=== PATIENT | male | born 1930 | race Caucasian/White ===

== ENCOUNTER 2018-09-02 05:13 | Inpatient (IN) | payer MEDICARE, OTHER ==
[2018-08-28 10:23] LABS: BASOPHILS # (AUTO) 0.1 X10'3 (0-0.2); BASOPHILS % (AUTO) 0.7 % (0-1); EOSINOPHILS # (AUTO) 0.1 X10'3 (0-0.9); EOSINOPHILS % (AUTO) 1.3 % (0-6); HEMATOCRIT 42.1 % (42.0-52.0); LYMPHOCYTES # (AUTO) 1.5 X10'3 (1.1-4.8); MEAN CORPUSCULAR HEMOGLOBIN 31.5 PG (27.0-31.0); MEAN CORPUSCULAR HGB CONC 33.1 g/dL (33.0-36.5); MEAN PLATELET VOLUME 8.5 FL (7.4-10.4); MONOCYTES # (AUTO) 0.5 X10'3 (0-0.9); MONOCYTES % (AUTO) 7.5 % (2-12); NEUTROPHILS # (AUTO) 4.9 X10'3 (1.8-7.7); NEUTROPHILS % (AUTO) 69.5 % (42-75); PLATELET COUNT 191 X10'3 (140-440); RED BLOOD COUNT 4.44 X10'6 (4.70-6.10); RED CELL DISTRIBUTION WIDTH 14.2 % (11.5-14.5); WHITE BLOOD COUNT 7.1 X10'3 (4.5-11.0)
[2018-08-28 10:31] LABS: ALBUMIN 3.7 G/DL (3.4-5.0); ANION GAP 9 (8-16); BLOOD UREA NITROGEN 21 MG/DL (7-18); BUN/CREATININE RATIO 19.6 (5.4-32.0); CALCIUM 8.8 MG/DL (8.5-10.1); CHLORIDE 105 MMOL/L (99-107); CREATININE 1.07 MG/DL (0.60-1.10); GLUCOSE 114 MG/DL (70-104); POTASSIUM 4.3 MMOL/L (3.5-5.1); SODIUM 142 MMOL/L (135-145); TOTAL CARBON DIOXIDE 28.3 MMOL/L (24-32); eGFR 65 ML/MIN
[2018-08-28 10:37] LABS: PARTIAL THROMBOPLASTIN TIME 30 SECONDS (22-32)
[2018-09-02] VITALS (24 sets, daily range): BP systolic 81–128; BP diastolic 42–62
[~2018-09-02] VITALS: Ht 188 cm; Wt 72.5 kg
[2018-09-02] MEDS ORDERED: LORazepam 0.5 MG tablet PO PRN (05:45)
[2018-09-02] MEDS ORDERED: diphenhydrAMINE 25mg capsule PO PRN ×2 (05:45→10:55)
[2018-09-02] MEDS ORDERED: ASPI81TA44 PO (05:49)
[2018-09-02] MEDS ORDERED: LISI10TA4 PO (05:49)
[2018-09-02] MEDS ORDERED: CARV6.253 PO (05:49)
[2018-09-02] MEDS ORDERED: POTA-82 PO (05:49)
[2018-09-02] MEDS ORDERED: ATOR40TA PO (05:49)
[2018-09-02] MEDS ORDERED: NIFE60TA80 PO (05:49)
[2018-09-02] MEDS ORDERED: FURO-150 PO (05:49)
[2018-09-02] MEDS: normal saline 1,000 ML IV SCH ×2 (05:54→15:40)
[2018-09-02] MEDS ORDERED: iohexol 350MG/ML 100ml bottle IV ONE (05:59)
[2018-09-02] MEDS ORDERED: fentaNYL/PF 50MCG/1 ML 2ML syringe ONE (05:59)
[2018-09-02] MEDS ORDERED: midazolam 2 mg/2 ml injection ONE (05:59)
[2018-09-02] MEDS ORDERED: LIDOcaine 1% (10mg/ml)w/preservative injection 20ml MDV ONE (05:59)
[2018-09-02] MEDS ORDERED: HYDROcodone/acetaminophen 10/325mg tab PO PRN (07:40)
[2018-09-02] MEDS ORDERED: proCHLORperazine 10 MG/2 ml inj IV PRN (07:40)
[2018-09-02] MEDS ORDERED: ondansetron/PF 4mg/2ml inj IV PRN ×2 (07:40→10:55)
[2018-09-02] MEDS ORDERED: HYDROcodone/acetaminophen 5mg/325mg tablet PO PRN ×2 (07:40→10:55)
[2018-09-02] MEDS ORDERED: OXAZEpam 15mg capsule PO PRN (07:40)
[2018-09-02] MEDS ORDERED: insulin glargine (Lantus) pen - multi-dose SQ PRN (09:25)
[2018-09-02] MEDS ORDERED: MESSAGE TO NURSING PO ONE ×5 (09:25→10:00)
[2018-09-02] MEDS ORDERED: gabapentin 400mg capsule PO ONE (09:25)
[2018-09-02] MEDS ORDERED: dextrose 50%-water 50ml dispensing syringe IV PRN (09:25)
[2018-09-02 12:26] LABS: ABG BASE EXCESS 1.4 mmol/L (-2.0-3.0); ABG HCO3 25.2 mmol/L (22.0-26.0); ABG OXYGEN SATURATION 96.9 % (95-98); ABG PCO2 (T) 36.6 mmHg (35.0-48.0); ABG PH (T) 7.455 (7.350-7.450); ABG PO2 (T) 93.9 mmHg (83-108); ALLEN'S TEST Positive; FCOHb 0.7 % (0.5-1.5); FO2Hb 96.2 % (94-100); TOTAL HEMOGLOBIN 12.4 G/dl (14.0-18.0)
[2018-09-02] MEDS ORDERED: magnesium sulf 1 GM/2 ML ONE (14:00)
[2018-09-02] MEDS ORDERED: albumin (human) 25% 100 ML IV solution IV ONE (14:00)
[2018-09-02] MEDS ORDERED: heparin 1,000 units/ml 10ml inj ONE (14:00)
[2018-09-02] MEDS ORDERED: phenylephrine 10mg/ml inj. ONE (14:00)
[2018-09-02] MEDS ORDERED: potassium Cl 2 mEq/ml inj IV ONE (14:00)
[2018-09-02] MEDS ORDERED: heparin 10,000 units/1 ML INJ ONE (14:00)
[2018-09-02] MEDS ORDERED: methylPREDNISolone sod. succ. 500mg inj ONE (14:00)
[2018-09-02] MEDS ORDERED: aminocaproic acid 250 MG/1 ML inj. ONE (14:00)
[2018-09-02] MEDS ORDERED: calcium chloride 100 MG/1 ML inj IV ONE (14:00)
[2018-09-02] MEDS ORDERED: sodium bicarbonate (8.4%) 1 mEq/ml syringe ONE (14:00)
[2018-09-02] MEDS ORDERED: LIDOcaine 2% (20 mg/ml) 5ml cardiac syringe ONE (14:00)
--- NOTE | 2018-09-02 14:00 | NUR ---
Patient arrived to room 316 and ambulated from wheelchair to hospital bed. Alert and oriented times four. Hard of hearing. Oriented patient to room and call light.
[2018-09-02 15:43] LABS: HEMATOCRIT 35.8 % (42.0-52.0); HEMOGLOBIN 12.2 g/dl (14.0-17.9); MEAN CORPUSCULAR HGB CONC 34.1 g/dL (33.0-36.5); PLATELET COUNT 161 X10'3 (140-440); RED BLOOD COUNT 3.81 X10'6 (4.70-6.10); RED CELL DISTRIBUTION WIDTH 14.2 % (11.5-14.5); WHITE BLOOD COUNT 7.3 X10'3 (4.5-11.0)
[2018-09-02 15:51] LABS: ALBUMIN 3.1 G/DL (3.4-5.0); ANION GAP 5 (8-16); BLOOD UREA NITROGEN 23 MG/DL (7-18); BUN/CREATININE RATIO 21.5 (5.4-32.0); CALCIUM 8.4 MG/DL (8.5-10.1); CHLORIDE 108 MMOL/L (99-107); CREATININE 1.07 MG/DL (0.60-1.10); GLUCOSE 100 MG/DL (70-104); SODIUM 145 MMOL/L (135-145); eGFR 65 ML/MIN
[2018-09-02 16:02] LABS: PARTIAL THROMBOPLASTIN TIME 30 SECONDS (22-32)
[2018-09-02 16:06] LABS: CLARITY,URINE CLEAR (Clear); COLOR,URINE YELLOW (Yellow); GLUCOSE, URINE NEGATIVE (Neg); KETONES,URINE NEGATIVE (Neg); LEUKOCYTE ESTERASE ,URINE NEGATIVE (Neg); NITRITES, URINE NEGATIVE (Neg); OCCULT BLOOD,URINE NEGATIVE (Neg); PROTEIN,URINE NEGATIVE (Neg)
[2018-09-02 16:08] LABS: UA COLLECTION TYPE VOIDED
[2018-09-02 16:52] LABS: MAGNESIUM 2.3 MG/DL (1.5-2.4)
[2018-09-02] MEDS ORDERED: heparin 25,000 UNIT/250ml bag 250 ML IV SCH (16:58)
[2018-09-02] MEDS ORDERED: heparin 10,000 units/1 ML INJ IV PRN (17:00)
[2018-09-02] MEDS ORDERED: heparin 10,000 units/1 ML INJ IV ONE (17:00)
--- NOTE | 2018-09-02 17:34 | NUR ---
Called Dr Perry to verify order for Heparin drip. He stated that he reviewed the carotid and venous ultrasounds and that the patient has a clot in his common femoral vein of the right lower extremity. Initiate heparin drip now, and d/c heparin drip four hours prior to surgery. Surgery is set for 0700 tomorrow morning.
--- NOTE | 2018-09-02 18:00 | NUR ---
Problems reprioritized. Patient report given, questions answered & plan of care reviewed with Sandi.
--- NOTE | 2018-09-02 18:15 | NUR ---
Patient in room MED 316. I have received report from DAIANA Amin (orienteer) and DAIANA Holliday and had the opportunity to ask questions and assume patient care.
--- NOTE | 2018-09-02 18:33 | NUR ---
Patient in room MED 316. I have received report from Eloisa AHMADI, Miya AHMADI and had the opportunity to ask questions and assume patient care.
--- NOTE | 2018-09-02 18:43 | NUR ---
Orientee documentation: I have reviewed and agree with all interventions, assessments performed and documented by Eloisa AHMADI. Orientee Medication Administration: For this medication-pass time frame, all medication were reviewed, dispensed, administered and documented per hospital policy by Eloisa AHMADI.
[2018-09-02] MEDS: mupirocin 2% ointment 22GM NS SCH (21:23)
[2018-09-02] MEDS: metoprolol tartrate 12.5mg (1/2 tablet) PO SCH (21:24)
[2018-09-02] MEDS: carvedilol 6.25mg tablet PO SCH (21:25)
[2018-09-03] VITALS (35 sets, daily range): BP systolic 97–137; BP diastolic 49–76
[2018-09-03] MEDS: normal saline 1,000 ML IV SCH (01:45)
[2018-09-03 03:17] LABS: BASOPHILS # (AUTO) 0.1 X10'3 (0-0.2); BASOPHILS % (AUTO) 0.7 % (0-1); EOSINOPHILS # (AUTO) 0.1 X10'3 (0-0.9); EOSINOPHILS % (AUTO) 1.9 % (0-6); HEMATOCRIT 34.7 % (42.0-52.0); HEMOGLOBIN 11.8 g/dl (14.0-17.9); LYMPHOCYTES % (AUTO) 25.8 % (21-51); MEAN CORPUSCULAR HGB CONC 34.1 g/dL (33.0-36.5); MEAN CORPUSCULAR VOLUME 93.7 FL (78-98); MEAN PLATELET VOLUME 8.7 FL (7.4-10.4); MONOCYTES # (AUTO) 0.6 X10'3 (0-0.9); MONOCYTES % (AUTO) 8.3 % (2-12); NEUTROPHILS # (AUTO) 4.9 X10'3 (1.8-7.7); NEUTROPHILS % (AUTO) 63.3 % (42-75); PLATELET COUNT 146 X10'3 (140-440); RED CELL DISTRIBUTION WIDTH 14.1 % (11.5-14.5); WHITE BLOOD COUNT 7.8 X10'3 (4.5-11.0)
[2018-09-03 03:24] LABS: ALBUMIN 2.9 G/DL (3.4-5.0); ANION GAP 7 (8-16); BLOOD UREA NITROGEN 20 MG/DL (7-18); CALCIUM 8.4 MG/DL (8.5-10.1); CHLORIDE 106 MMOL/L (99-107); CREATININE 1.05 MG/DL (0.60-1.10); GLUCOSE 115 MG/DL (70-104); POTASSIUM 3.8 MMOL/L (3.5-5.1); SODIUM 140 MMOL/L (135-145); TOTAL CARBON DIOXIDE 26.9 MMOL/L (24-32); eGFR 67 ML/MIN
[2018-09-03] MEDS ORDERED: ROPIVAcaine 0.5% (5mg/ml) 30ml vial ONE ×2 (04:34→10:24)
--- NOTE | 2018-09-03 04:41 | NUR ---
Orienteer documentation: I have reviewed and agree with all interventions, assessments performed and documented by Makenzie Huber RN. Orienteer Medication Administration: For this medication-pass time frame, all medication were reviewed, dispensed, administered and documented per hospital policy by Makenzie Huber RN .
[2018-09-03] MEDS ORDERED: insulin glargine (Lantus) pen - multi-dose SQ PRN (05:30)
[2018-09-03] MEDS ORDERED: vancomycin/NS 1 GM ADD-VANTAGE 250 ML IV ONE (05:30)
[2018-09-03] MEDS ORDERED: dextrose 50%-water 50ml dispensing syringe IV PRN ×2 (05:30→11:10)
[2018-09-03] MEDS ORDERED: cefazolin/dext.iso 2gm/50ml 50 ML IV ONE (05:30)
[2018-09-03] MEDS ORDERED: LORazepam 2 mg/ml vial IV ONE (05:30)
[2018-09-03] MEDS ORDERED: NUT.TX.IMPAIRED DIGEST FXN (Ensure Clear) 237 ML PO ONE (05:30)
[2018-09-03] MEDS ORDERED: gabapentin 400mg capsule PO ONE (05:30)
[2018-09-03] MEDS ORDERED: famotidine 20mg tablet PO ONE (05:30)
--- NOTE | 2018-09-03 06:00 | NUR ---
Patient in room MED 316. I have received report from Sandi and had the opportunity to ask questions and assume patient care.
--- NOTE | 2018-09-03 06:15 | NUR ---
Problems reprioritized. Patient report given, questions answered & plan of care reviewed with DAIANA Camar[place] and DAIANA Amin (orienteer).
--- NOTE | 2018-09-03 06:20 | NUR ---
V/S stable, pt was not in acute distress. visited pt by bedside, pt advised that he had no pain, and he is eager to get through the "open heart surgery". Pt picked up by OR staff for CABG at 0620. All personal belongings were taken.
[2018-09-03] MEDS ORDERED: propofol (Diprivan) 10mg/ml 100ml bottle IV ONE (06:27)
[2018-09-03] MEDS ORDERED: protamine sulf. 10mg/ml inj. IV ONE (06:27)
[2018-09-03] MEDS ORDERED: sevoflurane 250ml liquid IH ONE ×2 (06:27→15:10)
[2018-09-03] MEDS ORDERED: aminocaproic acid 250 MG/1 ML inj. ONE (06:27)
[2018-09-03] MEDS ORDERED: acetaminophen 1000 MG/100ml vial IV ONE (06:27)
[2018-09-03] MEDS ORDERED: DOBUTamine/D5W 500mg/250ml premix IV ONE (06:27)
[2018-09-03] MEDS ORDERED: DOPamine/D5W 400mg/250ml bag IV ONE ×2 (06:27→15:10)
[2018-09-03] MEDS ORDERED: midazolam 2 mg/2 ml injection ONE ×2 (06:34→06:39)
[2018-09-03] MEDS ORDERED: SUFENTANIL CITRATE 50 MCG/ML 2ml ampule IV ONE (06:34)
[2018-09-03] MEDS ORDERED: rocuronium 10mg/ml inj IV ONE ×3 (06:39→16:09)
[2018-09-03] MEDS ORDERED: etomidate 2mg/ml inj. ONE (06:40)
[2018-09-03 07:36] LABS: ABG BASE EXCESS VENOUS -1.2 mmol/L; ABG HCO3 VENOUS 23.5 mmol/L; ABG PCO2 VENOUS 39.7 mmHg; ABG PO2 VENOUS 38.1 mmHg; CL (ABG) 103 mmol/L (99-107); FHHb VENOUS 26.6 %; FMetHb VENOUS 0.2 %; FO2Hb VENOUS 72.2 %; GLUCOSE (ABG) 130 mg/dl (70-105); IONIZED CA (ABG) 1.11 mmol/L (1.03-1.32); K (ABG) 3.5 mmol/L (3.3-5.1); NA (ABG) 133 mmol/L (135-145); TOTAL HEMOGLOBIN 10.5 G/dl (14.0-18.0)
[2018-09-03] MEDS ORDERED: phenylephrine 10mg/ml inj. ONE (07:39)
[2018-09-03] MEDS ORDERED: furosemide 20MG tablet PO SCH (08:00)
[2018-09-03] MEDS ORDERED: atorvastatin 20mg tablet PO SCH (08:00)
[2018-09-03] MEDS ORDERED: NIFEdipine XL 30mg tablet PO SCH (08:00)
[2018-09-03] MEDS ORDERED: lisinopril 10 MG tablet PO SCH (08:00)
[2018-09-03] MEDS ORDERED: potassium Cl 20 mEq SR tablet PO SCH (08:00)
[2018-09-03] MEDS ORDERED: aspirin 81mg tablet.DR PO SCH (08:00)
[2018-09-03 08:40] LABS: ABG BASE EXCESS 1.4 mmol/L (-2.0-3.0); ABG HCO3 25.1 mmol/L (22.0-26.0); ABG OXYGEN SATURATION 99.4 % (95-98); ABG PCO2 35.7 mmHg (35.0-45.0); ABG PH 7.465 (7.350-7.450); ABG PO2 355.5 mmHg (60.0-100.0); CL (ABG) 103 mmol/L (99-107); FCOHb 0.5 % (0.5-1.5); FMetHb 0.3 % (0.3-1.12); FO2Hb 98.6 % (94-100); GLUCOSE (ABG) 104 mg/dl (70-105); IONIZED CA (ABG) 1.02 mmol/L (1.03-1.32); K (ABG) 5.2 mmol/L (3.3-5.1); NA (ABG) 133 mmol/L (135-145); TOTAL HEMOGLOBIN 8.3 G/dl (14.0-18.0)
[2018-09-03 08:45] LABS: ACT @ 1.70 U 289 SEC (193-297); ACT @ 2.84 U 427 SEC (260-420); BASELINE ACT 133 SEC (101-148); PATIENT WEIGHT 67.0k KG
[2018-09-03 09:10] LABS: ABG BASE EXCESS VENOUS 0.3 mmol/L; ABG HCO3 VENOUS 27.2 mmol/L; ABG PCO2 VENOUS 55.7 mmHg; CL (ABG) 104 mmol/L (99-107); FCOHb VENOUS 0.7 %; FHHb VENOUS 10.2 %; FMetHb VENOUS 0.3 %; FO2Hb VENOUS 88.8 %; GLUCOSE (ABG) 104 mg/dl (70-105); K (ABG) 4.3 mmol/L (3.3-5.1); NA (ABG) 135 mmol/L (135-145); TOTAL HEMOGLOBIN 9.5 G/dl (14.0-18.0)
[2018-09-03 09:25] LABS: ABG BASE EXCESS -0.3 mmol/L (-2.0-3.0); ABG HCO3 23.7 mmol/L (22.0-26.0); ABG PCO2 36.1 mmHg (35.0-45.0); ABG PH 7.435 (7.350-7.450); ABG PO2 223.8 mmHg (60.0-100.0); TOTAL HEMOGLOBIN 9.7 G/dl (14.0-18.0)
[2018-09-03 09:26] LABS: CL (ABG) 104 mmol/L (99-107); FCOHb 0.6 % (0.5-1.5); FMetHb 0.4 % (0.3-1.12); GLUCOSE (ABG) 115 mg/dl (70-105); IONIZED CA (ABG) 1.08 mmol/L (1.03-1.32); K (ABG) 4.2 mmol/L (3.3-5.1); NA (ABG) 133 mmol/L (135-145)
[2018-09-03 09:41] LABS: ABG BASE EXCESS 0.1 mmol/L (-2.0-3.0); ABG HCO3 23.3 mmol/L (22.0-26.0); ABG PCO2 31.7 mmHg (35.0-45.0); ABG PH 7.485 (7.350-7.450); ABG PO2 313.8 mmHg (60.0-100.0); CL (ABG) 101 mmol/L (99-107); FMetHb 0.4 % (0.3-1.12); FO2Hb 97.6 % (94-100); GLUCOSE (ABG) 97 mg/dl (70-105); IONIZED CA (ABG) 1.32 mmol/L (1.03-1.32); K (ABG) 4.1 mmol/L (3.3-5.1); NA (ABG) 130 mmol/L (135-145); TOTAL HEMOGLOBIN 7.8 G/dl (14.0-18.0)
[2018-09-03] MEDS: mupirocin 2% ointment 22GM NS SCH (09:58)
[2018-09-03] MEDS: carvedilol 6.25mg tablet PO SCH (09:59)
[2018-09-03] MEDS: metoprolol tartrate 12.5mg (1/2 tablet) PO SCH (10:01)
[2018-09-03 10:25] LABS: ABG BASE EXCESS VENOUS 0.6 mmol/L; ABG PCO2 VENOUS 38.9 mmHg; ABG PO2 VENOUS 37.5 mmHg; CL (ABG) 105 mmol/L (99-107); FCOHb VENOUS 1.4 %; FHHb VENOUS 28.5 %; FMetHb VENOUS 0.4 %; FO2Hb VENOUS 69.7 %; GLUCOSE (ABG) 114 mg/dl (70-105); IONIZED CA (ABG) 1.19 mmol/L (1.03-1.32); K (ABG) 4.3 mmol/L (3.3-5.1); NA (ABG) 135 mmol/L (135-145); TOTAL HEMOGLOBIN 8.1 G/dl (14.0-18.0)
[2018-09-03] MEDS ORDERED: niCARDipine-NS 40mg/200ml IVPB 200 ML IV PRN (11:09)
[2018-09-03] MEDS ORDERED: sodium chloride 0.45% 1,000 ML IV SCH (11:09)
[2018-09-03] MEDS ORDERED: DOPamine 400mg/D5W 250ml 250 ML IV PRN ×2 (11:09→12:14)
[2018-09-03] MEDS ORDERED: nitroGLYCERIN-Tridil 50MG/D5W 250 ML IV PRN ×2 (11:09→12:15)
[2018-09-03] MEDS ORDERED: sodium phosphate inj. 30 MMOL in dextrose 5%-water 250 ML IV PRN (11:10)
[2018-09-03] MEDS ORDERED: morphine 4 MG/ML inj SYRINge IV PRN (11:10)
[2018-09-03] MEDS ORDERED: magnesium hydroxide 30ml (MOM) UD suspension PO PRN (11:10)
[2018-09-03] MEDS ORDERED: magnesium 2GM in 50ml NS 50 ML IV PRN (11:10)
[2018-09-03] MEDS ORDERED: magnesium 4gm in 100ml NS 100 ML IV PRN (11:10)
[2018-09-03] MEDS ORDERED: insulin regular, human inj. 100 UNITS in normal saline 100ml IV soln 100 ML IV SCH ×2 (11:10)
[2018-09-03] MEDS ORDERED: potassium Cl 20 mEq SR tablet PO PRN (11:10)
[2018-09-03] MEDS ORDERED: ondansetron/PF 4mg/2ml inj IV PRN (11:10)
[2018-09-03] MEDS ORDERED: pantoprazole 40 MG vial IV ONE (11:10)
[2018-09-03] MEDS ORDERED: Neutra Phos packet PO PRN (11:10)
[2018-09-03] MEDS ORDERED: metoclopramide 5 mg/ml inj IV PRN (11:10)
[2018-09-03] MEDS ORDERED: normal saline 250ml IV soln 250 ML IV PRN (11:10)
[2018-09-03] MEDS ORDERED: sodium phosphate inj. 15 MMOL in dextrose 5%-water 150 ML IV PRN (11:10)
[2018-09-03] MEDS ORDERED: acetaminophen 325mg tablet PO PRN (11:10)
[2018-09-03] MEDS ORDERED: HYDROcodone/acetaminophen 10/325mg tab PO PRN ×2 (11:10)
--- NOTE | 2018-09-03 11:30 | NUR ---
Received to room , accompanied by Dr Perry and surgical crew. Placed on ventilator, to desk monitor, arterial line and PA line pressure monitored. Chest tubes to suction at 20 cm. Ying cath to gravity drainage. Dressings are dry and intact. See assessment record. All vasoactive drugs are infusing via central line.
[2018-09-03 11:41] LABS: ABG HCO3 22.3 mmol/L (22.0-26.0); ABG OXYGEN SATURATION 95.8 % (95-98); ABG PCO2 (T) 36.4 mmHg (35.0-48.0); ABG PH (T) 7.405 (7.350-7.450); ABG PO2 (T) 86.3 mmHg (83-108); FMetHb 0.2 % (0.3-1.12); FO2Hb 95.6 % (94-100); MINUTE VOLUME 9 L/min; PEEP 5 cm H2O; RESPIRATORY RATE 12 b/min; RESPIRATORY RATE (OBSERVED) 14 b/min; TIDAL VOLUME 500 mL; TOTAL HEMOGLOBIN 11.1 G/dl (14.0-18.0)
[2018-09-03 11:45] LABS: BASOPHILS % (AUTO) 0.2 % (0-1); EOSINOPHILS # (AUTO) 0.1 X10'3 (0-0.9); EOSINOPHILS % (AUTO) 0.4 % (0-6); HEMATOCRIT 31.5 % (42.0-52.0); HEMOGLOBIN 10.8 g/dl (14.0-17.9); LYMPHOCYTES # (AUTO) 0.7 X10'3 (1.1-4.8); MEAN CORPUSCULAR HEMOGLOBIN 32.3 PG (27.0-31.0); MEAN CORPUSCULAR HGB CONC 34.3 g/dL (33.0-36.5); MEAN CORPUSCULAR VOLUME 94.4 FL (78-98); MEAN PLATELET VOLUME 8.6 FL (7.4-10.4); MONOCYTES # (AUTO) 0.7 X10'3 (0-0.9); MONOCYTES % (AUTO) 3.8 % (2-12); NEUTROPHILS # (AUTO) 16.1 X10'3 (1.8-7.7); NEUTROPHILS % (AUTO) 91.6 % (42-75); PLATELET COUNT 94 X10'3 (140-440); RED BLOOD COUNT 3.33 X10'6 (4.70-6.10); RED CELL DISTRIBUTION WIDTH 13.9 % (11.5-14.5); WHITE BLOOD COUNT 17.6 X10'3 (4.5-11.0)
[2018-09-03 12:00] LABS: ALANINE AMINOTRANSFERASE 15 U/L (12-78); ALBUMIN 2.7 G/DL (3.4-5.0); ALBUMIN/GLOBULIN RATIO 1.4 (1.1-1.5); ALKALINE PHOSPHATASE 40 IU/L (46-116); ANION GAP 5 (8-16); ASPARTATE AMINO TRANSFERASE 20 U/L (10-37); BILIRUBIN,TOTAL 0.6 MG/DL (0.1-1.0); BLOOD UREA NITROGEN 15 MG/DL (7-18); CALCIUM 8.9 MG/DL (8.5-10.1); CHLORIDE 109 MMOL/L (99-107); CREATININE 0.88 MG/DL (0.60-1.10); GLUCOSE 111 MG/DL (70-104); MAGNESIUM 3.4 MG/DL (1.5-2.4); PHOSPHORUS 2.1 MG/DL (2.3-4.5); POTASSIUM 3.8 MMOL/L (3.5-5.1); SODIUM 140 MMOL/L (135-145); TOTAL CARBON DIOXIDE 26.5 MMOL/L (24-32); TOTAL PROTEIN 4.7 G/DL (6.4-8.2); eGFR 82 ML/MIN
[2018-09-03 12:05] LABS: PARTIAL THROMBOPLASTIN TIME 36 SECONDS (22-32)
[2018-09-03] MEDS: albumin (Human) 5% 250ml 250 ML IV PRN ×3 (12:08→14:36)
[2018-09-03] MEDS: insulin regular, human 100 UNIT in normal saline 100ml IV soln 100 ML IV SCH ×4 (12:25→15:00)
--- NOTE | 2018-09-03 12:30 | NUR ---
Pt has greater than 150cc of CT output in the last hour, CI 1.8-1.9. Dr. Perry aware, order received to transfused cryo and PLT.
[2018-09-03] MEDS: insulin Lispro (HumaLOG) vial - multi-dose SQ SCH ×2 (12:31→16:07)
[2018-09-03 12:34] LABS: PLATELET ESTIMATE DECREASED; TOTAL CELLS COUNTED 100
[2018-09-03] MEDS: potassium Cl 20mEq/100mL bag 100 ML IV PRN ×3 (12:34→21:55)
[2018-09-03] MEDS: gabapentin 300mg capsule PO SCH ×2 (12:34→21:55)
--- NOTE | 2018-09-03 12:50 | NUR ---
Dr. cruz at bedside, updated on pt condition, PLT and cryo transfused without reaction, aware of CT output of greater than 200ml in the last hour.
--- NOTE | 2018-09-03 14:10 | NUR ---
Dr. Perry at bedside, updated on CT output. CI and CO.
--- NOTE | 2018-09-03 14:20 | NUR ---
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 Will need nutrition therapy education prior to discharge once alert and oriented. Will continue to follow. Addendum: 09/03/18 at [address] Amended: Links added.
[2018-09-03] MEDS: morphine 4 MG/ML inj SYRINge IV PRN ×3 (15:09→22:10)
--- NOTE | 2018-09-03 15:18 | NUR ---
Dr. Perry called and notified regarding CT output at 1445. CT output did not seem to slow down and clots were forming very quickly. bairhugger applied and in use. Morphine x1 given per Anesthesiologist. Preparing pt to go back to OR due to bleeding. Pt returned to OR in bed with OR staffs and anesthesiologist.
[2018-09-03] MEDS ORDERED: fentaNYL /PF 50mcg/ml 5ml ampule ONE (15:40)
[2018-09-03] MEDS: NORMAL SALINE IV SCH ×2 (16:07→21:35)
[2018-09-03] MEDS: [UNRECOGNIZED DRUG - OTHER] IV SCH ×2 (16:07→21:35)
[2018-09-03] MEDS ORDERED: ESOMEPRAZOLE 40 MG VIAL IV ONE (16:15)
[2018-09-03] MEDS ORDERED: albumin (Human) 5% 250ml 500 ML IV ONE (16:19)
--- NOTE | 2018-09-03 16:45 | NUR ---
Received to room , accompanied by Dr. Perry and surgical crew. Placed on ventilator, to manager monitoring, arterial line and PA line pressure monitored. Chest tubes to suction at 20 cm. Ying cath to gravity drainage. Dressings are dry and intact. See assessment record. All vasoactive drugs are infusing via central line.
[2018-09-03 17:10] LABS: BASOPHILS % (AUTO) 0 % (0-1); EOSINOPHILS % (AUTO) 0 % (0-6); LYMPHOCYTES # (AUTO) 0.3 X10'3 (1.1-4.8); LYMPHOCYTES % (AUTO) 2.4 % (21-51); MEAN CORPUSCULAR HEMOGLOBIN 32.5 PG (27.0-31.0); MEAN CORPUSCULAR HGB CONC 34.2 g/dL (33.0-36.5); MEAN CORPUSCULAR VOLUME 94.9 FL (78-98); MEAN PLATELET VOLUME 8.3 FL (7.4-10.4); MONOCYTES # (AUTO) 0.4 X10'3 (0-0.9); MONOCYTES % (AUTO) 3.5 % (2-12); NEUTROPHILS # (AUTO) 10.3 X10'3 (1.8-7.7); NEUTROPHILS % (AUTO) 94.1 % (42-75); PLATELET COUNT 85 X10'3 (140-440); RED BLOOD COUNT 1.77 X10'6 (4.70-6.10); RED CELL DISTRIBUTION WIDTH 14.1 % (11.5-14.5); WHITE BLOOD COUNT 10.9 X10'3 (4.5-11.0)
[2018-09-03 17:14] LABS: HEMATOCRIT 16.8 % (42.0-52.0); HEMOGLOBIN 5.7 g/dl (14.0-17.9)
[2018-09-03 17:15] LABS: ALANINE AMINOTRANSFERASE 14 U/L (12-78); ALBUMIN 3.2 G/DL (3.4-5.0); ALBUMIN/GLOBULIN RATIO 2.1 (1.1-1.5); ALKALINE PHOSPHATASE 30 IU/L (46-116); ANION GAP 6 (8-16); ASPARTATE AMINO TRANSFERASE 19 U/L (10-37); BILIRUBIN,TOTAL 0.7 MG/DL (0.1-1.0); BLOOD UREA NITROGEN 14 MG/DL (7-18); BUN/CREATININE RATIO 16.3 (5.4-32.0); CHLORIDE 114 MMOL/L (99-107); CREATININE 0.86 MG/DL (0.60-1.10); GLUCOSE 153 MG/DL (70-104); MAGNESIUM 2.6 MG/DL (1.5-2.4); PHOSPHORUS 2.7 MG/DL (2.3-4.5); POTASSIUM 4.2 MMOL/L (3.5-5.1); SODIUM 145 MMOL/L (135-145); TOTAL CARBON DIOXIDE 25.1 MMOL/L (24-32); TOTAL PROTEIN 4.7 G/DL (6.4-8.2); eGFR 84 ML/MIN
[2018-09-03 17:16] LABS: ABG HCO3 22.9 mmol/L (22.0-26.0); ABG OXYGEN SATURATION 98.3 % (95-98); ABG PCO2 (T) 38.9 mmHg (35.0-48.0); ABG PH (T) 7.387 (7.350-7.450); ABG PO2 (T) 153.6 mmHg (83-108); FCOHb 0.1 % (0.5-1.5); FMetHb 0.5 % (0.3-1.12); FO2Hb 97.7 % (94-100); MINUTE VOLUME 6 L/min; PEEP 5 cm H2O; RESPIRATORY RATE 12 b/min; RESPIRATORY RATE (OBSERVED) 14 b/min; TIDAL VOLUME 500 mL; TOTAL HEMOGLOBIN 6.2 G/dl (14.0-18.0)
[2018-09-03 17:25] LABS: PARTIAL THROMBOPLASTIN TIME 61 SECONDS (22-32)
[2018-09-03] MEDS: ceFAZolin 1GM/D5W- ADD-VANTAGE 50 ML IV SCH (17:39)
--- NOTE | 2018-09-03 18:00 | NUR ---
Pt received a new atrium from OR with 100ml output. Dr. Perry aware of critical H&H and PLT, 2U PRBC and one PLT order received and transfusing per MD order. Problems reprioritized. Patient report given, questions answered & plan of care reviewed with DAIANA Guerra
[2018-09-03] MEDS: docusate sod 100mg capsule PO SCH (20:00)
[2018-09-03] MEDS ORDERED: mupirocin 2% ointment 22GM NS SCH (20:00)
[2018-09-03] MEDS: vancomycin/NS 1 GM ADD-VANTAGE 250 ML IV SCH (20:34)
[2018-09-03 21:00] LABS: BASOPHILS % (AUTO) 0.1 % (0-1); EOSINOPHILS % (AUTO) 0 % (0-6); HEMATOCRIT 23.1 % (42.0-52.0); HEMOGLOBIN 7.9 g/dl (14.0-17.9); LYMPHOCYTES # (AUTO) 0.3 X10'3 (1.1-4.8); LYMPHOCYTES % (AUTO) 2.9 % (21-51); MEAN CORPUSCULAR HEMOGLOBIN 31.1 PG (27.0-31.0); MEAN CORPUSCULAR HGB CONC 34.3 g/dL (33.0-36.5); MEAN CORPUSCULAR VOLUME 90.6 FL (78-98); MEAN PLATELET VOLUME 7.9 FL (7.4-10.4); MONOCYTES # (AUTO) 0.4 X10'3 (0-0.9); MONOCYTES % (AUTO) 3.8 % (2-12); NEUTROPHILS # (AUTO) 10.2 X10'3 (1.8-7.7); NEUTROPHILS % (AUTO) 93.2 % (42-75); PLATELET COUNT 125 X10'3 (140-440); RED BLOOD COUNT 2.55 X10'6 (4.70-6.10); RED CELL DISTRIBUTION WIDTH 15.1 % (11.5-14.5); WHITE BLOOD COUNT 10.9 X10'3 (4.5-11.0)
[2018-09-03 21:12] LABS: ALBUMIN 3.2 G/DL (3.4-5.0); ANION GAP 8 (8-16); BLOOD UREA NITROGEN 15 MG/DL (7-18); BUN/CREATININE RATIO 16.9 (5.4-32.0); CALCIUM 8.2 MG/DL (8.5-10.1); CHLORIDE 113 MMOL/L (99-107); CREATININE 0.89 MG/DL (0.60-1.10); GLUCOSE 156 MG/DL (70-104); MAGNESIUM 2.6 MG/DL (1.5-2.4); POTASSIUM 4.2 MMOL/L (3.5-5.1); SODIUM 145 MMOL/L (135-145); TOTAL CARBON DIOXIDE 23.7 MMOL/L (24-32); eGFR 81 ML/MIN
[2018-09-03 23:35] LABS: ABG BASE EXCESS -1.2 mmol/L (-2.0-3.0); ABG HCO3 17.9 mmol/L (22.0-26.0); ABG OXYGEN SATURATION 98.6 % (95-98); ABG PCO2 (T) 15.4 mmHg (35.0-48.0); ABG PH (T) 7.682 (7.350-7.450); ABG PO2 (T) 178.9 mmHg (83-108); FCOHb 0.3 % (0.5-1.5); FO2Hb 98.3 % (94-100); MINUTE VOLUME 20 L/min; PATIENT TEMPERATURE 37.2; PEEP 5 cm H2O; RESPIRATORY RATE (OBSERVED) 21 b/min; TOTAL HEMOGLOBIN 8.4 G/dl (14.0-18.0)
[2018-09-04] VITALS (27 sets, daily range): BP systolic 107–150; BP diastolic 48–79
[2018-09-04] MEDS: ceFAZolin 1GM/D5W- ADD-VANTAGE 50 ML IV SCH ×3 (00:30→16:22)
[2018-09-04] MEDS: morphine 4 MG/ML inj SYRINge IV PRN (00:33)
[2018-09-04 02:31] LABS: BASOPHILS % (AUTO) 0.1 % (0-1); EOSINOPHILS % (AUTO) 0 % (0-6); HEMATOCRIT 22.9 % (42.0-52.0); HEMOGLOBIN 7.7 g/dl (14.0-17.9); LYMPHOCYTES # (AUTO) 0.6 X10'3 (1.1-4.8); LYMPHOCYTES % (AUTO) 4.5 % (21-51); MEAN CORPUSCULAR HEMOGLOBIN 30.7 PG (27.0-31.0); MEAN CORPUSCULAR HGB CONC 33.9 g/dL (33.0-36.5); MEAN CORPUSCULAR VOLUME 90.7 FL (78-98); MEAN PLATELET VOLUME 8.4 FL (7.4-10.4); MONOCYTES # (AUTO) 0.9 X10'3 (0-0.9); MONOCYTES % (AUTO) 6.6 % (2-12); NEUTROPHILS # (AUTO) 12.3 X10'3 (1.8-7.7); NEUTROPHILS % (AUTO) 88.8 % (42-75); PLATELET COUNT 128 X10'3 (140-440); RED BLOOD COUNT 2.52 X10'6 (4.70-6.10); RED CELL DISTRIBUTION WIDTH 15.6 % (11.5-14.5); WHITE BLOOD COUNT 13.9 X10'3 (4.5-11.0)
[2018-09-04 02:41] LABS: PARTIAL THROMBOPLASTIN TIME 36 SECONDS (22-32)
[2018-09-04 02:45] LABS: ALANINE AMINOTRANSFERASE 18 U/L (12-78); ALBUMIN 3.2 G/DL (3.4-5.0); ALBUMIN/GLOBULIN RATIO 1.6 (1.1-1.5); ALKALINE PHOSPHATASE 31 IU/L (46-116); ANION GAP 8 (8-16); ASPARTATE AMINO TRANSFERASE 21 U/L (10-37); BILIRUBIN,TOTAL 0.6 MG/DL (0.1-1.0); BLOOD UREA NITROGEN 15 MG/DL (7-18); BUN/CREATININE RATIO 14.9 (5.4-32.0); CALCIUM 8.2 MG/DL (8.5-10.1); CHLORIDE 114 MMOL/L (99-107); CREATININE 1.01 MG/DL (0.60-1.10); GLUCOSE 127 MG/DL (70-104); MAGNESIUM 2.5 MG/DL (1.5-2.4); PHOSPHORUS 4.3 MG/DL (2.3-4.5); POTASSIUM 4.4 MMOL/L (3.5-5.1); SODIUM 145 MMOL/L (135-145); TOTAL CARBON DIOXIDE 23.3 MMOL/L (24-32); TOTAL PROTEIN 5.2 G/DL (6.4-8.2); eGFR 70 ML/MIN
[2018-09-04] MEDS: potassium Cl 20mEq/100mL bag 100 ML IV PRN ×2 (03:45→05:15)
--- NOTE | 2018-09-04 06:30 | NUR ---
Patient in room CICU 2013. I have received report from DAIANA Guerra and had the opportunity to ask questions and assume patient care.
--- NOTE | 2018-09-04 06:32 | NUR ---
MD notified of radiologist suggestion for result of chest xray , also notified of patient agitation , and current lab result and orders received . daughter Chiara at bedside , sitter was provided as well, Nitro drip started for BP 145 systolic r/t to agitation.
--- NOTE | 2018-09-04 06:38 | NUR ---
Problems reprioritized. Patient report given, questions answered & plan of care reviewed with Neida AHMADI.
--- NOTE | 2018-09-04 07:31 | NUR ---
PA line DC per MD order under aseptic technique, pressure held for 15min, pt tolerated procedure well without discomfort. CVL dressing applied and in use.
[2018-09-04] MEDS: atorvastatin 10mg tablet PO SCH (07:40)
[2018-09-04] MEDS: metoprolol tartrate 12.5mg (1/2 tablet) PO SCH ×2 (07:40→19:07)
[2018-09-04] MEDS: gabapentin 300mg capsule PO SCH ×3 (07:40→19:07)
[2018-09-04] MEDS: mupirocin 2% nasal ointment 1gm UD NS SCH ×2 (07:41→19:08)
[2018-09-04] MEDS: vancomycin/NS 1 GM ADD-VANTAGE 250 ML IV SCH ×2 (07:41→19:14)
[2018-09-04] MEDS ORDERED: aspirin 325mg tablet PO SCH (08:00)
[2018-09-04] MEDS ORDERED: aspirin 325mg tablet, delayed-release (Ecotrin) PO SCH (08:00)
[2018-09-04] MEDS: insulin Lispro (HumaLOG) vial - multi-dose SQ SCH ×3 (09:00→18:00)
[2018-09-04] MEDS ORDERED: aspirin 81mg tablet.DR PO SCH (09:12)
[2018-09-04] MEDS ORDERED: aspirin 81mg tablet.DR PO ONE (11:30)
[2018-09-04] MEDS: docusate sod 100mg capsule PO SCH ×2 (11:38→19:07)
[2018-09-04 12:19] LABS: HEMATOCRIT 24.8 % (42.0-52.0); HEMOGLOBIN 8.4 g/dl (14.0-17.9); MEAN CORPUSCULAR HEMOGLOBIN 30.8 PG (27.0-31.0); MEAN CORPUSCULAR HGB CONC 33.7 g/dL (33.0-36.5); MEAN CORPUSCULAR VOLUME 91.3 FL (78-98); MEAN PLATELET VOLUME 8.8 FL (7.4-10.4); PLATELET COUNT 98 X10'3 (140-440); RED BLOOD COUNT 2.72 X10'6 (4.70-6.10); WHITE BLOOD COUNT 13.7 X10'3 (4.5-11.0)
--- NOTE | 2018-09-04 13:00 | NUR ---
DC arterial line per MD order, pressure held for 15min, pt tolerated procedure well without discomfort. no s/s bleeding
--- NOTE | 2018-09-04 18:29 | NUR ---
Problems reprioritized. Patient report given, questions answered & plan of care reviewed with Danita.
--- NOTE | 2018-09-04 18:30 | NUR ---
Patient in room CICU 2012. I have received report from Neida AHMADI and had the opportunity to ask questions and assume patient care. Patient resting in bed, alert/oriented x3. Patient upset that "people keep waking me up". Patient aware that he is in the hospital at this time, somewhat oriented to situation. HR in high 70s in sinus rhythm, all chronotropic and vasoactive infusions off at this time. CT tube draining serosanguineous drainage, incision site CDI. Will continue to monitor patient.
[2018-09-04] MEDS ORDERED: dextrose 50%-water 50ml dispensing syringe IV PRN ×2 (21:15)
[2018-09-04] MEDS ORDERED: dextrose ORAL solution 15 GM/59 ML bottle PO PRN ×2 (21:15)
[2018-09-05] VITALS (15 sets, daily range): BP systolic 96–149; BP diastolic 51–90
--- NOTE | 2018-09-05 | NUR ---
NO changes in patient condition noted
[2018-09-05] MEDS: ceFAZolin 1GM/D5W- ADD-VANTAGE 50 ML IV SCH (00:16)
[2018-09-05 04:13] LABS: BASOPHILS % (AUTO) 0.1 % (0-1); EOSINOPHILS % (AUTO) 0 % (0-6); HEMATOCRIT 24.2 % (42.0-52.0); HEMOGLOBIN 8.2 g/dl (14.0-17.9); LYMPHOCYTES # (AUTO) 0.5 X10'3 (1.1-4.8); LYMPHOCYTES % (AUTO) 3.6 % (21-51); MEAN CORPUSCULAR HEMOGLOBIN 31.3 PG (27.0-31.0); MEAN CORPUSCULAR HGB CONC 33.9 g/dL (33.0-36.5); MEAN CORPUSCULAR VOLUME 92.3 FL (78-98); MEAN PLATELET VOLUME 9.2 FL (7.4-10.4); MONOCYTES # (AUTO) 1.1 X10'3 (0-0.9); MONOCYTES % (AUTO) 8.3 % (2-12); NEUTROPHILS # (AUTO) 12.1 X10'3 (1.8-7.7); PLATELET COUNT 87 X10'3 (140-440); RED BLOOD COUNT 2.63 X10'6 (4.70-6.10); RED CELL DISTRIBUTION WIDTH 15.4 % (11.5-14.5); WHITE BLOOD COUNT 13.8 X10'3 (4.5-11.0)
[2018-09-05 04:22] LABS: ALBUMIN 2.8 G/DL (3.4-5.0); ANION GAP 4 (8-16); BLOOD UREA NITROGEN 18 MG/DL (7-18); BUN/CREATININE RATIO 22.2 (5.4-32.0); CALCIUM 8.3 MG/DL (8.5-10.1); CHLORIDE 109 MMOL/L (99-107); CREATININE 0.81 MG/DL (0.60-1.10); GLUCOSE 177 MG/DL (70-104); MAGNESIUM 2.3 MG/DL (1.5-2.4); PHOSPHORUS 3.1 MG/DL (2.3-4.5); POTASSIUM 4.6 MMOL/L (3.5-5.1); SODIUM 138 MMOL/L (135-145); eGFR 90 ML/MIN
--- NOTE | 2018-09-05 06:30 | NUR ---
Problems reprioritized. Patient report given, questions answered & plan of care reviewed with Marcos AHMADI.
[2018-09-05] MEDS ORDERED: aspirin 81mg tablet.DR PO SCH (08:00)
[2018-09-05] MEDS ORDERED: furosemide 40mg/4ml inj IV ONE (08:35)
[2018-09-05] MEDS ORDERED: potassium Cl 20 mEq SR tablet PO PRN ×2 (08:45)
[2018-09-05] MEDS ORDERED: magnesium 2GM in 50ml NS 50 ML IV PRN (08:45)
[2018-09-05] MEDS ORDERED: potassium CL 10mEq/100ml bag 100 ML IV PRN ×2 (08:45)
[2018-09-05] MEDS ORDERED: magnesium Cl slow-release 64mg tablet PO PRN (08:45)
[2018-09-05] MEDS ORDERED: magnesium 4gm in 100ml NS 100 ML IV PRN (08:45)
[2018-09-05] MEDS: docusate sod 100mg capsule PO SCH ×2 (09:04→20:07)
[2018-09-05] MEDS: mupirocin 2% nasal ointment 1gm UD NS SCH (09:04)
[2018-09-05] MEDS: gabapentin 300mg capsule PO SCH (09:04)
[2018-09-05] MEDS: atorvastatin 10mg tablet PO SCH (09:04)
[2018-09-05] MEDS ORDERED: carvedilol 6.25mg tablet PO ONE (09:05)
[2018-09-05] MEDS: pantoprazole 40mg Tablet.DR PO SCH (09:07)
[2018-09-05] MEDS: insulin Lispro (HumaLOG) vial - multi-dose SQ SCH ×2 (09:24→13:49)
--- NOTE | 2018-09-05 11:23 | NUR ---
CABG consult: Pt remains AOx2 not appropriate for CABG ed at this time. Advanced to mechanical soft/thin/NCS per [employer] recs. PO 100% meals meeting needs. LBM 09/01 receiving colace. Will continue to monitor. Rec: 1. continue NCS/mechanical soft diet per [employer] 2. routine bowel care 3. CABG ed if appropriate prior to d/c 4. wt per rx Addendum: 09/05/18 at [address] Amended: Links added.
--- NOTE | 2018-09-05 14:15 | NUR ---
received report from DAIANA Rodríguez. All questions answered.
--- NOTE | 2018-09-05 14:30 | NUR ---
Patient transferred to [facility] unit with all belongings. Clinton Mcneill removed chest tubes at 0900, dressing applied. Central line removed at 1015 per protocol; pt tolerated well. Ying Catheter removed at 1400 without difficulty; pt requested to leave it in while being diuresed this AM. Pt up to floor with all belongings including glasses, jeans, shoes, socks, shirt, underwear. Report given to Genie AHMADI with all questions answered.
--- NOTE | 2018-09-05 14:35 | NUR ---
Pt arrived to unit via wheelchair with all belongings. pt ambulated to bed sba. pt attached to bedside monitor technician; vss. pt oriented to room and call light. 2 RN skin check performed with DAIANA Peña.
--- NOTE | 2018-09-05 18:08 | NUR ---
Problems reprioritized. Patient report given, questions answered & plan of care reviewed with Baylee AHMADI.
--- NOTE | 2018-09-05 18:14 | NUR ---
Patient in room MED 307. I have received report from Mariana AHMADI and had the opportunity to ask questions and assume patient care.
--- NOTE | 2018-09-05 18:15 | NUR ---
Orientee documentation: I have reviewed and agree with interventions, assessments performed and documented by Lawanda AHMADI. Orientee Medication Administration: For this medication-pass time frame, all medication were reviewed, dispensed, administered and documented per hospital policy by Lawanda AHMADI .
[2018-09-05] MEDS: potassium Cl 20 mEq SR tablet PO SCH (20:00)
[2018-09-05] MEDS: magnesium Cl slow-release 64mg tablet PO SCH (20:08)
[2018-09-05] MEDS: carvedilol 6.25mg tablet PO SCH (20:08)
[2018-09-05] MEDS ORDERED: insulin glargine (Lantus) pen - multi-dose SQ SCH (21:00)
[2018-09-05] MEDS ORDERED: lisinopril 2.5mg tablet PO SCH (21:00)
[2018-09-06 06:00] VITALS: BP 126/71
--- NOTE | 2018-09-06 06:14 | NUR ---
Problems reprioritized. Patient report given, questions answered & plan of care reviewed with Mariana AHMADI.
--- NOTE | 2018-09-06 06:15 | NUR ---
Patient in room MED 307. I have received report from DAIANA ZAMAN and had the opportunity to ask questions and assume patient care.
[2018-09-06 06:19] LABS: BASOPHILS % (AUTO) 0.2 % (0-1); EOSINOPHILS % (AUTO) 0.4 % (0-6); HEMATOCRIT 23.8 % (42.0-52.0); HEMOGLOBIN 8.2 g/dl (14.0-17.9); LYMPHOCYTES # (AUTO) 1.2 X10'3 (1.1-4.8); LYMPHOCYTES % (AUTO) 11.7 % (21-51); MEAN CORPUSCULAR HEMOGLOBIN 31.4 PG (27.0-31.0); MEAN CORPUSCULAR HGB CONC 34.5 g/dL (33.0-36.5); MEAN CORPUSCULAR VOLUME 91.1 FL (78-98); MEAN PLATELET VOLUME 9.1 FL (7.4-10.4); MONOCYTES # (AUTO) 0.9 X10'3 (0-0.9); MONOCYTES % (AUTO) 8.9 % (2-12); NEUTROPHILS # (AUTO) 8.4 X10'3 (1.8-7.7); NEUTROPHILS % (AUTO) 78.8 % (42-75); PLATELET COUNT 85 X10'3 (140-440); RED BLOOD COUNT 2.61 X10'6 (4.70-6.10); RED CELL DISTRIBUTION WIDTH 14.9 % (11.5-14.5); WHITE BLOOD COUNT 10.7 X10'3 (4.5-11.0)
[2018-09-06 06:22] LABS: ALBUMIN 2.6 G/DL (3.4-5.0); ANION GAP 7 (8-16); BLOOD UREA NITROGEN 24 MG/DL (7-18); BUN/CREATININE RATIO 27.3 (5.4-32.0); CALCIUM 8.3 MG/DL (8.5-10.1); CHLORIDE 108 MMOL/L (99-107); CREATININE 0.88 MG/DL (0.60-1.10); GLUCOSE 85 MG/DL (70-104); POTASSIUM 3.7 MMOL/L (3.5-5.1); SODIUM 142 MMOL/L (135-145); TOTAL CARBON DIOXIDE 27.3 MMOL/L (24-32); eGFR 82 ML/MIN
[2018-09-06] MEDS: potassium Cl 20 mEq SR tablet PO SCH ×2 (07:47→23:06)
[2018-09-06] MEDS: pantoprazole 40mg Tablet.DR PO SCH (07:48)
[2018-09-06] MEDS: carvedilol 6.25mg tablet PO SCH ×2 (07:48→23:06)
[2018-09-06] MEDS: magnesium Cl slow-release 64mg tablet PO SCH ×2 (07:48→23:06)
[2018-09-06] MEDS: docusate sod 100mg capsule PO SCH ×2 (07:49→20:00)
[2018-09-06] MEDS: K and/or MAG REPLACEMENT MC SCH (08:00)
[2018-09-06] MEDS ORDERED: magnesium citrate 296ml oral solution PO ONE (08:20)
--- NOTE | 2018-09-06 09:59 | NUR ---
CASE MGT PAGED: SNF TRANSFER AND TMS FORMS SIGNED BY CHINA RAHMAN.
[2018-09-06 11:00] VITALS: BP 127/73
[2018-09-06 15:00] VITALS: BP 123/69
[2018-09-06] MEDS ORDERED: furosemide 40mg/4ml inj IV ONE (17:00)
--- NOTE | 2018-09-06 17:54 | NUR ---
Orientee documentation: I have reviewed and agree with interventions, assessments performed and documented by Lawanda AHMADI. Orientee Medication Administration: For this medication-pass time frame, all medication were reviewed, dispensed, administered and documented per hospital policy by Lawanda AHMADI.
[2018-09-06 18:00] VITALS: BP 130/73
--- NOTE | 2018-09-06 18:13 | NUR ---
Problems reprioritized. Patient report given, questions answered & plan of care reviewed with Johnathan AHMADI.
--- NOTE | 2018-09-06 18:29 | NUR ---
Assumed care from Loraine AHMADI
[2018-09-06] MEDS ORDERED: lisinopril 5mg tablet PO SCH (21:00)
[2018-09-06] MEDS ORDERED: atorvastatin 10mg tablet PO SCH (21:00)
[2018-09-06 22:00] VITALS: BP 119/73
[2018-09-07 02:00] VITALS: BP 116/65
[2018-09-07 05:28] LABS: ALBUMIN 2.6 G/DL (3.4-5.0); ANION GAP 7 (8-16); BLOOD UREA NITROGEN 23 MG/DL (7-18); CALCIUM 8.5 MG/DL (8.5-10.1); CHLORIDE 107 MMOL/L (99-107); CREATININE 0.82 MG/DL (0.60-1.10); GLUCOSE 108 MG/DL (70-104); MAGNESIUM 2.2 MG/DL (1.5-2.4); POTASSIUM 4.1 MMOL/L (3.5-5.1); SODIUM 143 MMOL/L (135-145); TOTAL CARBON DIOXIDE 29.5 MMOL/L (24-32); eGFR 89 ML/MIN
[2018-09-07 05:40] LABS: BASOPHILS % (AUTO) 0.3 % (0-1); EOSINOPHILS # (AUTO) 0.1 X10'3 (0-0.9); EOSINOPHILS % (AUTO) 0.8 % (0-6); HEMATOCRIT 26.1 % (42.0-52.0); HEMOGLOBIN 8.8 g/dl (14.0-17.9); LYMPHOCYTES # (AUTO) 1.1 X10'3 (1.1-4.8); LYMPHOCYTES % (AUTO) 12.1 % (21-51); MEAN CORPUSCULAR HEMOGLOBIN 31.3 PG (27.0-31.0); MEAN CORPUSCULAR HGB CONC 33.9 g/dL (33.0-36.5); MEAN CORPUSCULAR VOLUME 92.2 FL (78-98); MEAN PLATELET VOLUME 9.1 FL (7.4-10.4); MONOCYTES % (AUTO) 10.8 % (2-12); NEUTROPHILS # (AUTO) 6.9 X10'3 (1.8-7.7); PLATELET COUNT 105 X10'3 (140-440); RED BLOOD COUNT 2.83 X10'6 (4.70-6.10); RED CELL DISTRIBUTION WIDTH 14.7 % (11.5-14.5)
[2018-09-07 06:00] VITALS: BP 118/70
--- NOTE | 2018-09-07 06:44 | NUR ---
Report given to Bronwyn AHMADI.
[2018-09-07] MEDS: carvedilol 6.25mg tablet PO SCH (07:49)
[2018-09-07] MEDS: pantoprazole 40mg Tablet.DR PO SCH (07:49)
[2018-09-07] MEDS: K and/or MAG REPLACEMENT MC SCH (07:50)
[2018-09-07] MEDS: docusate sod 100mg capsule PO SCH (07:50)
[2018-09-07] MEDS: potassium Cl 20 mEq SR tablet PO SCH (07:51)
[2018-09-07] MEDS: magnesium Cl slow-release 64mg tablet PO SCH (07:51)
[2018-09-07 11:00] VITALS: BP 95/58
--- NOTE | 2018-09-07 13:24 | NUR ---
Problems reprioritized. Patient report given, questions answered & plan of care reviewed with NURSE AT [facility]. PATIENT WILL BE PICKED UP AT 1430.
[2018-09-07] MEDS ORDERED: papaverine 30 mg/ml 2ml inj. IV ONE (14:34)
--- NOTE | 2018-09-07 14:40 | NUR ---
SHAQ CARGO HERE FOR PICKUP PATIENT DRESSED HIMSELF AND READY FOR TRANSPORT TO [facility] Addendum: 09/07/18 at 1443 by Bronwyn Marr RN IV WAS REMOVED PREVIOUSLY
== END 2018-09-07 14:35 | DRG 219 ==
LOC: SSTAY O 05:13 → MED 3N 09:23 → CICU 2S 09-03 11:25 → MED 3N 09-05 14:35
PROVIDERS: ADMIT Thoracic Surgery (Cardiothoracic Vascular Surgery); ATTEND Thoracic Surgery (Cardiothoracic Vascular Surgery)
PROC: 02100Z9 Bypass Coronary Artery, One Artery from Left Internal Mammary, Open Approach (ICD-10-PCS; 2018-09-03)
PROC: 0W3C0ZZ Control Bleeding in Mediastinum, Open Approach (ICD-10-PCS; 2018-09-03)
PROC: 5A1221Z Performance of Cardiac Output, Continuous (ICD-10-PCS; 2018-09-03)
PROC: B24BZZ4 Ultrasonography of Heart with Aorta, Transesophageal (ICD-10-PCS; 2018-09-03)
PROC: 30233N1 Transfusion of Nonautologous Red Blood Cells into Peripheral Vein, Percutaneous Approach (ICD-10-PCS; 2018-09-03)
PROC: 30233R1 Transfusion of Nonautologous Platelets into Peripheral Vein, Percutaneous Approach (ICD-10-PCS; 2018-09-03)
PROC: 30233M1 Transfusion of Nonautologous Plasma Cryoprecipitate into Peripheral Vein, Percutaneous Approach (ICD-10-PCS; 2018-09-03)
PROC: 02HQ32Z Insertion of Monitoring Device into Right Pulmonary Artery, Percutaneous Approach (ICD-10-PCS; 2018-09-03)
PROC: 4A133B3 Monitoring of Arterial Pressure, Pulmonary, Percutaneous Approach (ICD-10-PCS; 2018-09-03)
PROC: 4A1239Z Monitoring of Cardiac Output, Percutaneous Approach (ICD-10-PCS; 2018-09-03)
PROC: 02RF08Z Replacement of Aortic Valve with Zooplastic Tissue, Open Approach (ICD-10-PCS; principal; 2018-09-03 06:27)
PROC: 30233N1 Transfusion of Nonautologous Red Blood Cells into Peripheral Vein, Percutaneous Approach (ICD-10-PCS; 2018-09-04)
DX: I08.0 Rheumatic disorders of both mitral and aortic valves (principal); I50.23 Acute on chronic systolic (congestive) heart failure; D68.8 Other specified coagulation defects; I25.10 Atherosclerotic heart disease of native coronary artery without angina pectoris; D69.6 Thrombocytopenia, unspecified; E78.00 Pure hypercholesterolemia, unspecified; I11.0 Hypertensive heart disease with heart failure; I25.5 Ischemic cardiomyopathy; I70.0 Atherosclerosis of aorta; I77.819 Aortic ectasia, unspecified site; J44.9 Chronic obstructive pulmonary disease, unspecified; Z80.42 Family history of malignant neoplasm of prostate; Z85.820 Personal history of malignant melanoma of skin; Z87.891 Personal history of nicotine dependence
CPT/HCPCS: 0232T; 93306; 93312; 93325; 93454; 36415; 36600; 71045; 71046; 80048; 80053; 81003; 82330; 82435; 82803; 82947; 82948; 83036; 83735; 84100; 84132; 84295; 85018; 85025; 85027; 85347; 85384; 85610; 85730; 86885; 86900; 86901; 86920; 87081; 88300; 92508; 92616; 93005; 93880; 93970; 94002; 94010; 94668; 94760; 97110; 97116; 97162; 97530; 99152; A4340; A4618; A4620; A6258; A6402; A6449; A7000; A7048; C1713; C1751; C1769; G0378; J0131; J0690; J1250; J1265; J1644; J1815; J1940; J2001; J2060; J2150; J2250; J2270; J2370; J2440; J2704; J2720; J2795; J2930; J3010; J3370; J3475; J3480; J3490; J7030; J7040; J7050; J7060; J7120; P9012; P9016; P9035; P9045; P9047; Q0163; Q9967